=== PATIENT | female | born 1960 | race Caucasian/White ===

== ENCOUNTER → 2018-03-25 01:12 | Outpatient (CLI) | payer OTHER, SELFPAY ==
[2018-03-25] MEDS: Omnipaque 350 MG/ML 50 ML BTL IJ (08:40)
[2018-03-25] MEDS: Breeza Beverage 473 ML BTL PO (08:41)
--- NOTE | 2018-03-25 10:30 | DI.RPTCT_ITS ---
SYMPTOM/DIAGNOSIS: ENDOMETRIAL CA, C54.01 F/U ? DISEASE RESPONSE CT SCAN CHEST, ABDOMEN AND PELVIS: Comparison examination is 12/31/17. CT ABDOMEN AND PELVIS: There are again seen several hepatic metastases. The largest lesion is seen in the right lobe and measures 5.6 cm AP x 4.8 cm transverse x 4.7 cm cranial caudad. This compares with 5.6 cm AP x 4.7 cm transverse on the prior examination. There has been decrease in size of a lesion in the anterior segment of the right lobe of the liver which currently measures 2.2 cm transverse x 2.5 cm AP. This compares with 3.1 cm transverse x 2.8 cm AP. The soft tissue mass seen inferior to the liver measures 5.2 cm. AP x 3.4 cm transverse x 3.4 cm cranial caudad. This compares to 5.1 cm AP x 2.9 cm transverse on the prior examination. The gallbladder is negative by CT criteria. There is no biliary ductal dilatation. The pancreas, spleen and adrenal glands are unremarkable. The kidneys show normal and symmetric enhancement. No evidence of a solid renal mass or obstruction is present. The urinary bladder is intact. The patient appears to be status post hysterectomy. The bowel shows no evidence of obstruction or inflammation. There is a moderate amount of retained stool throughout the colon. No significant abdominal or pelvic adenopathy, ascites or pneumoperitoneum is present. No acute abnormalities seen in the bones. IMPRESSION: 1. Within the liver there has been no increase in size of the hepatic masses. Some of the hepatic lesions have shown decrease in size. Slight increase in size of the subhepatic mass since 12/31/17 CT CHEST: Thoracic aorta is of normal caliber. No aneurysmal dilatation or dissection seen. Heart size is within normal limits. No significant pericardial effusion is present. No significant mediastinal, hilar or axillary adenopathy is seen. No pleural effusion or pneumothorax is identified. No pulmonary nodules are identified. The tracheal bronchial tree is unremarkable. The bones are intact. No suspicious lytic or sclerotic lesions are present. IMPRESSION: No evidence of thoracic metastatic disease.
[2018-03-25] MEDS: Omnipaque 350 MG/ML 100 ML BTL IJ (10:31)
== END ==
PROVIDERS: PCP Family Medicine; Visit Provider Obstetrics & Gynecology Gynecologic Oncology
DX: C54.1 Malignant neoplasm of endometrium (principal); C22.9 Malignant neoplasm of liver, not specified as primary or secondary; R97.8 Other abnormal tumor markers
CPT/HCPCS: 74177; 71260; J3490; Q9967

== ENCOUNTER 2018-03-25 05:17 | Outpatient (RCR) | payer OTHER, SELFPAY ==
[2018-03-25 08:46] LABS: Abs Immature Grans 0.01 k/cumm (0.0-0.09); Absolute Basophil Count 0.02 k/cumm (0.0-0.2); Absolute Eosinophil Count 0.01 k/cumm (0.0-0.7); Absolute Lymphocyte Count 1.83 k/cumm (1.2-3.4); Absolute Monocyte Count 0.67 k/cumm (0.11-0.7); Absolute Neutrophil Count 3.96 k/cumm (1.2-6.7); Basophils % 0.3; Eosinophils % 0.2; HCT 41.3 % (36.0-46.0); HGB 14.1 g/dL (12.0-15.5); Immature Grans % 0.2; Lymphocytes % 28.2; Mean Corp. HGB Concentration 34.1 g/dL (32.0-36.0); Mean Corpuscular Hemoglobin 30.8 pg (27.0-33.0); Mean Corpuscular Volume 90.2 fL (80-95); Mean Platelet Volume 8.7 fL (8.0-11.0); Monocytes % 10.3; Neutrophils % 60.8; Platelet Count 275 x1000/uL (130-400); RBC 4.58 m/cumm (4.00-5.20); RBC Distribution Width 13.7 % (11.7-14.6)
[2018-03-25] MEDS: Normal Saline Flush 10 ML SYR IVP (08:50)
[2018-03-25] MEDS: Heparin 500 UNITS/5 ML SYRINGE IV (08:50)
[2018-03-25 09:04] LABS: ALT 35 U/L (12-78); AST 29 U/L (15-37); Alkaline Phosphatase 73 U/L (46-116); Anion Gap 11.4 mmol/L (3-11); BUN 11 mg/dL (7-18); Bilirubin, Total 1.3 mg/dL (0.2-1.0); CO2 22.6 mmol/L (21.0-32.0); CREATININE 0.81 mg/dL (0.55-1.02); Calcium 9.4 mg/dL (8.5-10.1); Chloride 105 mmol/L (98-107); Glucose 88 mg/dL (70-100); Potassium 3.9 mmol/L (3.5-5.1); Sodium 139 mmol/L (136-145); Total Protein 7.2 g/dL (6.4-8.2)
[2018-04-12] MEDS: Heparin 500 UNITS/5 ML SYRINGE IV (09:40)
[2018-04-12] MEDS: Normal Saline Flush 10 ML SYR IVP (09:45)
== END 2018-04-19 ==
LOC: INF 04-12 05:17
PROVIDERS: PCP Family Medicine; Visit Provider Internal Medicine Hematology & Oncology
DX: C54.1 Malignant neoplasm of endometrium (principal); C78.7 Secondary malignant neoplasm of liver and intrahepatic bile duct; R97.8 Other abnormal tumor markers; Z00.6 Encounter for examination for normal comparison and control in clinical research program
CPT/HCPCS: 36415; 36591; 80053; 86304; 96523; 82378; 85025

== ENCOUNTER → 2018-04-11 07:02 | Outpatient (CLI) | payer OTHER, SELFPAY ==
[2018-04-11 07:18] LABS: Absolute Basophil Count 0.03 k/cumm (0.0-0.2); Absolute Eosinophil Count 0.01 k/cumm (0.0-0.7); Absolute Lymphocyte Count 1.73 k/cumm (1.2-3.4); Absolute Monocyte Count 0.86 k/cumm (0.11-0.7); Absolute Neutrophil Count 4.78 k/cumm (1.2-6.7); Basophils % 0.4; Eosinophils % 0.1; HCT 42.7 % (36.0-46.0); HGB 14.4 g/dL (12.0-15.5); Lymphocytes % 23.3; Mean Corp. HGB Concentration 33.7 g/dL (32.0-36.0); Mean Corpuscular Hemoglobin 30.5 pg (27.0-33.0); Mean Corpuscular Volume 90.5 fL (80-95); Mean Platelet Volume 8.7 fL (8.0-11.0); Monocytes % 11.6; Neutrophils % 64.6; Platelet Count 272 x1000/uL (130-400); RBC 4.72 m/cumm (4.00-5.20); RBC Distribution Width 13.2 % (11.7-14.6); White Blood Cell Count 7.41 k/cumm (4.4-10.8)
[2018-04-11 07:41] LABS: ALT 30 U/L (12-78); AST 28 U/L (15-37); Albumin 4.1 g/dL (3.4-5.0); Alkaline Phosphatase 79 U/L (46-116); Anion Gap 9.7 mmol/L (3-11); BUN 10 mg/dL (7-18); Bilirubin, Total 3.8 mg/dL (0.2-1.0); CO2 27.3 mmol/L (21.0-32.0); CREATININE 0.82 mg/dL (0.55-1.02); Calcium 9.5 mg/dL (8.5-10.1); Chloride 99 mmol/L (98-107); Glucose 107 mg/dL (70-100); Potassium 3.7 mmol/L (3.5-5.1); Sodium 136 mmol/L (136-145); Total Protein 7.8 g/dL (6.4-8.2)
[2018-04-11 14:35] LABS: Lactate-non-spesis 0.8 mmol/L (0.6-1.4)
[2018-04-12 09:35] LABS: CEA 4.7 ng/ml
[2018-04-12 10:53] LABS: CA 125 28 U/mL (0-30)
== END ==
PROVIDERS: PCP Family Medicine; Visit Provider Internal Medicine Hematology & Oncology
DX: C54.1 Malignant neoplasm of endometrium (principal); R97.8 Other abnormal tumor markers; R10.11 Right upper quadrant pain
CPT/HCPCS: 36415; 80053; 86304; 82378; 83605; 85025

== ENCOUNTER → 2018-04-12 01:56 | Outpatient (CLI) | payer OTHER, SELFPAY ==
--- NOTE | 2018-04-12 11:16 | DI.RPTCT_ITS ---
SYMPTOM/DIAGNOSIS: RUQ PAIN R10.11, ENDOMETRIAL CA C54.1 CHEST, ABDOMEN AND PELVIS CT: 04/12 CT examination of the chest, abdomen and pelvis was performed with a bolus infusion of 100 cc Omnipaque 350 and ingestion of dilute barium. The examination is compared with most recent CT of 03/25/18. The lungs are clear and the tracheobronchial tree appears intact. No mediastinal or hilar adenopathy. No evidence of pulmonary embolic disease or other major vascular abnormality. Left subclavian indwelling catheter noted. No axillary or supraclavicular adenopathy. No pleural effusion or pleural based mass. No evidence of bony metastatic disease in the thorax. Arterial phase hepatic imaging shows markedly increased hilda-lesional/lesional enhancement of previously noted lesion located just under the diaphragm anteriorly in the right hepatic lobe. On venous phase imaging this shows an area of presumed central necrosis which has increased from about 16 mm in diameter on the previous examination to about 18 mm in diameter on the current examination. Numerous additional hepatic lesions were noted previously and these are essentially unchanged on the current examination, with the largest lesion in right hepatic lobe measuring 67 x 58 mm on transaxial imaging as compared to 66 x 58 mm on the previous examination and the largest left lobe lesion again measuring about 36 mm in diameter, unchanged from the previous study. The previously described subhepatic intra-abdominal lesion measures about 55 x 36 mm in diameter on transaxial imaging and is essentially unchanged from the previous study. Adrenals, kidneys and pancreas are unremarkable. No biliary dilatation. The spleen appears intact. No gross retroperitoneal or pelvic adenopathy. No focal bowel pathology identified. No abdominal wall hernia seen. No gross bony lesion identified on scanning of the chest, abdomen or pelvis. CONCLUSION: Findings of hepatic metastatic disease are unchanged from 03/25/18 except for slight interval increase in size and prominent increase in perilesional/lesional enhancement of an anterior right hepatic lobe lesion as described above. An apparent subhepatic lesion is unchanged from the previous study. No new remote metastatic disease.
[2018-04-12] MEDS: Omnipaque 350 MG/ML 100 ML BTL IJ (11:22)
== END ==
PROVIDERS: PCP Family Medicine; Visit Provider Family Medicine
DX: C54.1 Malignant neoplasm of endometrium (principal); C78.7 Secondary malignant neoplasm of liver and intrahepatic bile duct
CPT/HCPCS: 74177; 71260; J3490

== ENCOUNTER → 2018-04-14 01:28 | Outpatient (CLI) | payer OTHER, SELFPAY ==
[2018-04-14 09:46] LABS: Bilirubin, Total 1.9 mg/dL (0.2-1.0)
== END ==
PROVIDERS: PCP Family Medicine; Visit Provider Family Medicine
DX: C54.1 Malignant neoplasm of endometrium (principal); C78.7 Secondary malignant neoplasm of liver and intrahepatic bile duct
CPT/HCPCS: 36415; 82247

== ENCOUNTER 2018-05-01 01:50 | Outpatient (CLI) | payer OTHER, SELFPAY ==
[2018-05-01 09:44] LABS: Abs Immature Grans 0.04 k/cumm (0.0-0.09); Absolute Lymphocyte Count 0.79 k/cumm (1.2-3.4); Absolute Monocyte Count 0.99 k/cumm (0.11-0.7); Absolute Neutrophil Count 7.65 k/cumm (1.2-6.7); HCT 36.1 % (36.0-46.0); Immature Grans % 0.4; Lymphocytes % 8.3; Mean Corp. HGB Concentration 33.2 g/dL (32.0-36.0); Mean Corpuscular Hemoglobin 29.8 pg (27.0-33.0); Mean Corpuscular Volume 89.6 fL (80-95); Mean Platelet Volume 8.7 fL (8.0-11.0); Monocytes % 10.5; Neutrophils % 80.8; Platelet Count 287 x1000/uL (130-400); RBC 4.03 m/cumm (4.00-5.20); RBC Distribution Width 13.3 % (11.7-14.6); White Blood Cell Count 9.47 k/cumm (4.4-10.8)
[2018-05-01 10:34] LABS: ALT 137 U/L (12-78); AST 57 U/L (15-37); Albumin 2.9 g/dL (3.4-5.0); Alkaline Phosphatase 121 U/L (46-116); Anion Gap 8.2 mmol/L (3-11); BUN 9 mg/dL (7-18); CO2 27.8 mmol/L (21.0-32.0); CREATININE 0.61 mg/dL (0.55-1.02); Calcium 8.8 mg/dL (8.5-10.1); Chloride 98 mmol/L (98-107); Glucose 100 mg/dL (70-100); Potassium 3.9 mmol/L (3.5-5.1); Sodium 134 mmol/L (136-145); Total Protein 6.4 g/dL (6.4-8.2)
== END 2018-05-01 02:10 ==
PROVIDERS: PCP Family Medicine; Visit Provider Family Medicine
DX: R10.9 Unspecified abdominal pain (principal)
CPT/HCPCS: 36415; 80053; 84443; 85025

== ENCOUNTER 2018-06-05 00:50 | Outpatient (CLI) | payer OTHER, SELFPAY ==
[2018-06-05] MEDS: Omnipaque 350 MG/ML 100 ML BTL IJ ×2 (08:58→10:25)
[2018-06-05] MEDS: Breeza Beverage 473 ML BTL PO (08:58)
--- NOTE | 2018-06-05 10:30 | DI.CT_ITS ---
SYMPTOMS/DIAGNOSIS: H/O ENDOMETRIAL CA, ASSESS DISEASE, COMPARE TO PREVIOUS CT OF THE CHEST, ABDOMEN AND PELVIS: The examination was carried out according to the usual protocol with an intravenous administration of 100 cc's of Omnipaque 350 and ingestion of dilute barium. Comparison is made with a prior study of 04/12/18. CHEST CT: The lungs are clear. The tracheobronchial tree is intact. There is no mediastinal or hilar adenopathy. There is no evidence of axillary or supraclavicular adenopathy. A Port-a-Cath is identified. Its tip ending in the superior vena cava. SUMMARY: No evidence of metastatic disease in the chest. ABDOMEN AND PELVIS CT: The with intravenous and oral contrast enhanced study reveals numerous hepatic metastases. The previously described dominant right hepatic lobe mass today measures 4.6 cm in length and 3.4 cm in width in the coronal plane compared with the prior study of 6.8 cm and 4.3 cm. Numerous other right hepatic lobe lesions and the anterior superior right hepatic lobe lesion measures 3.2 cm in length and 2.8 cm in width in the coronal plane vs 3.5 x 3.7 cm on the prior study. A subhepatic mass measures 3.2 cm x 3.7 cm on the current examination and 4.0 x 3.2 cm on the prior examination. The spleen, pancreas, kidneys and adrenals are unremarkable. There is no evidence of bowel obstruction. A considerable quantity of gas and scattered fecal material is noted throughout the colon. The bladder is normal. There is no evidence of intra-abdominal or pelvic adenopathy. Degenerative changes involving a scoliotic dorsolumbar spine are identified. There is nothing to suggest bony metastases. SUMMARY: There has been some decrease in the size of the dominant right hepatic lobe lesions. No new lesions are identified in the liver. Also a slight interval decrease in the size of a subhepatic mass is noted. There is otherwise no evidence of metastatic disease in the abdomen or pelvis.
== END 2018-06-05 01:10 ==
PROVIDERS: PCP Family Medicine; Visit Provider Obstetrics & Gynecology Gynecologic Oncology
DX: C54.1 Malignant neoplasm of endometrium (principal); C78.7 Secondary malignant neoplasm of liver and intrahepatic bile duct; Z00.6 Encounter for examination for normal comparison and control in clinical research program
CPT/HCPCS: 74177; 71260; J3490

== ENCOUNTER 2018-06-05 01:48 | Outpatient (RCR) | payer OTHER, SELFPAY ==
[2018-06-05] MEDS: Heparin 500 UNITS/5 ML SYRINGE IV (07:50)
[2018-06-05] MEDS: Normal Saline Flush 10 ML SYR IVP (07:50)
[2018-06-05 08:40] LABS: ALT 38 U/L (12-78); AST 31 U/L (15-37); Albumin 3.4 g/dL (3.4-5.0); Alkaline Phosphatase 123 U/L (46-116); BUN 14 mg/dL (7-18); Bilirubin, Total 1.4 mg/dL (0.2-1.0); CREATININE 0.83 mg/dL (0.55-1.02); Calcium 8.5 mg/dL (8.5-10.1); Chloride 109 mmol/L (98-107); Glucose 95 mg/dL (70-100); Potassium 4.3 mmol/L (3.5-5.1); Sodium 143 mmol/L (136-145); Total Protein 6.7 g/dL (6.4-8.2)
== END 2018-06-19 23:59 | disposition home or self-care (01) ==
LOC: INF 01:48
PROVIDERS: PCP Family Medicine; Visit Provider Internal Medicine Hematology & Oncology
DX: C54.1 Malignant neoplasm of endometrium (principal); Z45.2 Encounter for adjustment and management of vascular access device
CPT/HCPCS: 36591; 80053

== ENCOUNTER 2018-07-16 09:05 | Outpatient (RCR) | payer OTHER, SELFPAY ==
[2018-07-16] MEDS: Normal Saline Flush 10 ML SYR IVP (10:33)
[2018-07-16] MEDS: Heparin 500 UNITS/5 ML SYRINGE IV (10:34)
[2018-07-16 10:37] LABS: ALT 41 U/L (12-78); AST 30 U/L (15-37); Albumin 3.5 g/dL (3.4-5.0); Alkaline Phosphatase 97 U/L (46-116); Anion Gap 10.3 mmol/L (3-11); BUN 12 mg/dL (7-18); Bilirubin, Total 1.1 mg/dL (0.2-1.0); CO2 23.7 mmol/L (21.0-32.0); CREATININE 0.77 mg/dL (0.55-1.02); Chloride 108 mmol/L (98-107); Glucose 71 mg/dL (70-100); Potassium 3.5 mmol/L (3.5-5.1); Sodium 142 mmol/L (136-145); Total Protein 6.8 g/dL (6.4-8.2)
== END 2018-07-19 23:59 | disposition home or self-care (01) ==
LOC: INF 09:05
PROVIDERS: PCP Family Medicine; Visit Provider Internal Medicine Hematology & Oncology
DX: C54.1 Malignant neoplasm of endometrium (principal); C78.7 Secondary malignant neoplasm of liver and intrahepatic bile duct; R97.8 Other abnormal tumor markers; Z00.6 Encounter for examination for normal comparison and control in clinical research program; Z45.2 Encounter for adjustment and management of vascular access device
CPT/HCPCS: 36591; 80053

== ENCOUNTER 2018-08-21 00:39 | Outpatient (CLI) | payer OTHER, SELFPAY ==
[2018-08-21] MEDS: Breeza Beverage 473 ML BTL PO ×2 (08:32→08:35)
[2018-08-21] MEDS: Omnipaque 350 MG/ML 50 ML BTL IJ (08:34)
--- NOTE | 2018-08-21 08:45 | DI.CT_ITS ---
SYMPTOMS/DIAGNOSIS: ENDOMETRIAL CA, ASSESS DISEASE RESPONSE, C54.1 CT OF THE CHEST, ABDOMEN AND PELVIS: Comparison is made with [id number]. Small emboli are seen in the right upper, right middle and right lower lobes as well as the left lower lobe which are partially occluding and have the appearance of subacute pulmonary emboli. No emboli were demonstrated on the previous exam. There is no evidence of pulmonary nodules, infiltrates or effusions. No adenopathy is seen. There has been significant interval decrease in size of the liver metastases. The largest lesion now measures 2.9 x 3.1 cm compared with 4.6 x 3.4 cm. Other liver lesions have also decreased substantially in size. The subhepatic mass has also decreased in size, now measuring 2.4 cm. No new masses are seen. There is no evidence of ascites or omental thickening. A large quantity of stool is again noted. The spleen, pancreas, adrenals and kidneys are unremarkable. The patient is status post hysterectomy. The bladder is unremarkable. No suspicious bony lesions are identified. Scoliosis is again noted. IMPRESSION: 1. Small bilateral partially occluding pulmonary emboli. 2. Significant decrease in size of hepatic metastases and subhepatic mass. No new metastatic disease is identified.
[2018-08-21] MEDS: Omnipaque 350 MG/ML 100 ML BTL IJ (09:34)
== END 2018-08-21 00:59 ==
PROVIDERS: PCP Family Medicine; Visit Provider Obstetrics & Gynecology Gynecologic Oncology
DX: C54.1 Malignant neoplasm of endometrium (principal); C78.7 Secondary malignant neoplasm of liver and intrahepatic bile duct; I26.99 Other pulmonary embolism without acute cor pulmonale
CPT/HCPCS: 74177; 71260; J3490; Q9967

== ENCOUNTER 2018-08-21 01:55 | Outpatient (RCR) | payer OTHER, SELFPAY ==
[2018-08-21] MEDS: Normal Saline Flush 10 ML SYR IVP (08:34)
[2018-08-21] MEDS: Heparin 500 UNITS/5 ML SYRINGE IV (08:35)
[2018-08-21 08:54] LABS: ALT 38 U/L (12-78); AST 27 U/L (15-37); Albumin 3.7 g/dL (3.4-5.0); Alkaline Phosphatase 94 U/L (46-116); Anion Gap 10.4 mmol/L (3-11); BUN 12 mg/dL (7-18); Bilirubin, Total 0.9 mg/dL (0.2-1.0); CO2 24.6 mmol/L (21.0-32.0); Chloride 107 mmol/L (98-107); Glucose 100 mg/dL (70-100); Potassium 3.9 mmol/L (3.5-5.1); Sodium 142 mmol/L (136-145)
== END 2018-09-19 23:59 | disposition home or self-care (01) ==
LOC: INF 01:55
PROVIDERS: PCP Family Medicine; Visit Provider Internal Medicine Hematology & Oncology
DX: C54.1 Malignant neoplasm of endometrium (principal); Z45.2 Encounter for adjustment and management of vascular access device
CPT/HCPCS: 36591; 80053; 96523

== ENCOUNTER 2018-08-26 01:00 | Outpatient (CLI) | payer OTHER, SELFPAY ==
--- NOTE | 2018-08-26 11:00 | DI.US_ITS ---
SYMPTOM/DIAGNOSIS: PULMONARY EMBOLUS, I26.99 BILATERAL LOWER EXTREMITY ULTRASOUND: The deep veins of the lower extremities show normal compression, augmentation and color flow. No evidence of a deep venous thrombus is seen. The visualized portions of the greater saphenous vein are patent with blood flow and compression noted. IMPRESSION: No evidence of a deep venous thrombus in either lower extremity.
== END 2018-08-26 01:20 ==
PROVIDERS: PCP Family Medicine; Visit Provider Internal Medicine Hematology & Oncology
DX: I26.99 Other pulmonary embolism without acute cor pulmonale (principal)
CPT/HCPCS: 93970

== ENCOUNTER 2018-09-13 00:39 | Outpatient (CLI) | payer OTHER, SELFPAY ==
--- NOTE | 2018-09-13 11:38 | DI.MRI_ITS ---
SYMPTOMS/DIAGNOSIS: RIGHT SHOULDER PAIN S/P INJURY 3 MONTHS AGO, ? ROTATOR CUFF TEAR MRI OF THE RIGHT SHOULDER: Routine noncontrast examination was performed. The subscapularis, supraspinatus, infraspinatus and teres minor tendons are intact. The muscles show normal signal and size. No evidence of significant muscular fatty atrophy is present. The biceps tendon has a normal appearance and location. The glenoid labrum is grossly unremarkable on this noncontrast examination. There are mild degenerative changes seen at the glenohumeral joint and the acromioclavicular joint. No evidence of an occult fracture or avascular necrosis is seen. Subchondral cyst is seen in the greater tuberosity. There is a moderate-size joint effusion. There is a moderate amount of fluid in the subcoracoid bursa. No soft tissue masses appreciated. The ligaments appear intact. IMPRESSION: 1. No evidence of rotator cuff or labral tear on this noncontrast examination. 2. Degenerative changes at the glenohumeral and acromioclavicular joints. 3. Subcoracoid bursitis and small to moderate-sized joint effusion.
--- NOTE | 2018-09-18 12:02 | LETE_ITS ---
September 18, 2018 Kanika Gama M.D. Department of Orthopedics [place] [id number] Re: Tabby Rico M.D. : [address] Gama: I would like to refer to you Dr. 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 She has recently responded to chemotherapy and now is on hormonal therapy. She is complaining of right shoulder pain with no history of trauma. A clinical examination showed a very mildly restricted range of motion and mainly pain. I initially thought she may have some de gree of rotator cuff tendonitis and injected the subacromial space without any relief. I then subseq uently injected the glenohumeral joint from which she had excellent relief but only temporary. Becau se her prognosis for her endometrial cancer has changed in a positive way, she decided to go ahead wi th further evaluation with an MRI scan. This was done at [facility] and the images have been pushed to you at [facility]. The imaging showed eviden ce of glenohumeral arthritis with a fairly prominent amount of joint fluid and some mildly increased signal intensity in the supraspinatus tendon. There was also an accumulation of fluid in the subcora coid process. There was also an associated cyst in the humeral head which was seen on the patient's chest CAT scans going back as far as 2017. There was does not appear to be any evidence of any kim gnancy involving the glenohumeral joint nor does she show any potential signs of avascular necrosis r elated to her chemotherapy. 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 My understanding from the patient is that it is currently maybe up to 2 years. She does not really feel prepared to undergo a total shoulder arthroplasty and Arnaldo Rubio M.D. thought perhaps she might benefit from a arthroscopic evaluation and perhaps debridement. She is c urrently Kanika Gama M.D. Re: Tabby Rico M.D. September 18, 2018 Page 2 on anticoagulation for multiple pulmonary emboli that were detected on a CT scan even though she was having very minimal symptoms from that. I would appreciate your opinion regarding how to further manage this patient, perhaps repeat injectio n of the glenohumeral joint would be in order. It was fairly easy to inject and I was pretty certain I was in the joint in that the patient got excellent relief but unfortunately the Depo-Medrol did no t really provide any relief. She only got relief from the Marcaine which was injected simultaneously . Please feel free to contact me if you have any questions regarding this patient. Sincerely, Tyrel Allen M.D. AARON/kathe D/T-09/18/18
== END 2018-09-13 00:59 ==
PROVIDERS: PCP Family Medicine; Visit Provider Orthopaedic Surgery
DX: M25.511 Pain in right shoulder (principal); M19.011 Primary osteoarthritis, right shoulder; M25.411 Effusion, right shoulder; M75.51 Bursitis of right shoulder
CPT/HCPCS: 73221

== ENCOUNTER 2018-10-02 08:00 | Outpatient (RCR) | payer OTHER, SELFPAY ==
[2018-10-02] MEDS: Heparin 500 UNITS/5 ML SYRINGE IV (09:06)
[2018-10-02] MEDS: Normal Saline Flush 10 ML SYR IVP (09:06)
== END 2018-10-17 23:59 | disposition home or self-care (01) ==
LOC: INF 08:00
PROVIDERS: PCP Family Medicine; Visit Provider Obstetrics & Gynecology Gynecologic Oncology
DX: Z45.2 Encounter for adjustment and management of vascular access device (principal)
CPT/HCPCS: 96523

== ENCOUNTER 2018-11-19 01:34 | Outpatient (CLI) | payer OTHER, SELFPAY ==
--- NOTE | 2018-11-19 11:46 | DI.CT_ITS ---
SYMPTOMS/DIAGNOSIS: ENDOMETRIAL CA, C54.1, EVALUATE DISEASE CT EXAMINATION OF THE CHEST, ABDOMEN AND PELVIS: The study was carried out with an intravenous injection of 100 cc of Omnipaque 350. Comparison is made with the prior examination of 08/21/2018. On today's study, there is no evidence of pulmonary emboli. There is no evidence of pulmonary metastasis. Multiple hepatic metastases are again demonstrated. There is no evidence of an infiltrate, no pleural effusion and no adenopathy is identified. Again noted are multiple liver lesions, the largest of which measures today approximately 23 x 24 mm and previously measured 29 x 31 mm. There has been no definite interval change in the size of multiple other lesions. No definite new metastases are evident. A subhepatic mass measures 17 x 32 mm compared with 20 x 40 mm on the previous study. The spleen, kidneys and adrenals are intact. The pancreas is unremarkable. There is no evidence of bowel pathology. The bladder appears intact. The patient is status post hysterectomy. Again noted is a scoliotic deformity of the lower dorsal and lumbar spine. There are degenerative bony changes at L5-S1 where a narrowed vacuum disc is seen. There are no findings to suggest bony metastases. SUMMARY: There has been some slight interval decrease in at least two of the hepatic metastases. No new metastatic deposits are seen. Also, there has been a slight interval decrease in the size of a subhepatic metastasis. As note above, no pulmonary emboli are noted on today's examination.
[2018-11-19] MEDS: Omnipaque 350 MG/ML 100 ML BTL IJ (11:49)
== END 2018-11-19 01:54 ==
PROVIDERS: PCP Family Medicine; Visit Provider Obstetrics & Gynecology Gynecologic Oncology
DX: C54.1 Malignant neoplasm of endometrium (principal); Z12.89 Encounter for screening for malignant neoplasm of other sites; C78.7 Secondary malignant neoplasm of liver and intrahepatic bile duct
CPT/HCPCS: 74177; 71260; J3490

== ENCOUNTER 2018-11-25 01:30 | Outpatient (RCR) | payer OTHER, SELFPAY ==
[2018-11-19] MEDS: Normal Saline Flush 10 ML SYR IVP (09:14)
[2018-11-19] MEDS: Heparin 500 UNITS/5 ML SYRINGE IV (09:15)
[2018-11-19 09:27] LABS: Abs Immature Grans 0.01 k/cumm (0.0-0.09); Absolute Basophil Count 0.02 k/cumm (0.0-0.2); Absolute Eosinophil Count 0.01 k/cumm (0.0-0.7); Absolute Lymphocyte Count 1.47 k/cumm (1.2-3.4); Absolute Monocyte Count 0.51 k/cumm (0.11-0.7); Absolute Neutrophil Count 3.05 k/cumm (1.2-6.7); Basophils % 0.4; Eosinophils % 0.2; HCT 42.3 % (36.0-46.0); HGB 14.3 g/dL (12.0-15.5); Immature Grans % 0.2; Mean Corp. HGB Concentration 33.8 g/dL (32.0-36.0); Mean Corpuscular Hemoglobin 29.7 pg (27.0-33.0); Mean Corpuscular Volume 87.8 fL (80-95); Mean Platelet Volume 9.2 fL (8.0-11.0); Monocytes % 10.1; Neutrophils % 60.1; Platelet Count 279 x1000/uL (130-400); RBC 4.82 m/cumm (4.00-5.20); RBC Distribution Width 15.3 % (11.7-14.6); White Blood Cell Count 5.07 k/cumm (4.4-10.8)
[2018-11-19 09:35] LABS: ALT 41 U/L (12-78); AST 32 U/L (15-37); Alkaline Phosphatase 88 U/L (46-116); Anion Gap 12.6 mmol/L (3-11); BUN 13 mg/dL (7-18); Bilirubin, Total 2.3 mg/dL (0.2-1.0); CO2 24.4 mmol/L (21.0-32.0); Calcium 9.3 mg/dL (8.5-10.1); Chloride 104 mmol/L (98-107); Glucose 90 mg/dL (70-100); Potassium 4.1 mmol/L (3.5-5.1); Sodium 141 mmol/L (136-145); Total Protein 6.9 g/dL (6.4-8.2)
== END 2018-12-17 23:59 | disposition home or self-care (01) ==
LOC: INF 01:30
PROVIDERS: PCP Family Medicine; Visit Provider Internal Medicine Hematology & Oncology
DX: C54.1 Malignant neoplasm of endometrium (principal); Z45.2 Encounter for adjustment and management of vascular access device
CPT/HCPCS: 36591; 80053; 85025

== ENCOUNTER 2018-12-31 08:08 | Outpatient (RCR) | payer OTHER, SELFPAY ==
[2018-12-31] MEDS: Heparin 500 UNITS/5 ML SYRINGE IV (09:52)
[2018-12-31] MEDS: Normal Saline Flush 10 ML SYR IVP (09:53)
== END 2019-01-17 23:59 | disposition home or self-care (01) ==
LOC: INF 08:08
PROVIDERS: PCP Family Medicine; Visit Provider Internal Medicine Hematology & Oncology
DX: Z45.2 Encounter for adjustment and management of vascular access device (principal)
CPT/HCPCS: 96523

== ENCOUNTER 2019-02-07 08:19 | Outpatient (RCR) | payer OTHER, SELFPAY | END 2019-02-16 23:59 | disposition home or self-care (01) | LOC: INF 08:19 | PROVIDERS: PCP Family Medicine; Visit Provider Internal Medicine Hematology & Oncology | DX: Z45.2 Encounter for adjustment and management of vascular access device (principal) | CPT/HCPCS: 96523 ==

== ENCOUNTER 2019-03-24 09:19 | Outpatient (RCR) | payer OTHER, SELFPAY ==
[2019-03-24] MEDS: Normal Saline Flush 10 ML SYR IVP (09:50)
[2019-03-24] MEDS: Heparin 500 UNITS/5 ML SYRINGE IV (10:07)
[2019-03-24 10:33] LABS: ALT 58 U/L (12-78); AST 45 U/L (15-37); Albumin 3.8 g/dL (3.4-5.0); Alkaline Phosphatase 74 U/L (46-116); Anion Gap 8.1 mmol/L (3-11); BUN 20 mg/dL (7-18); Bilirubin, Total 1.3 mg/dL (0.2-1.0); CO2 26.9 mmol/L (21.0-32.0); CREATININE 0.73 mg/dL (0.55-1.02); Calcium 8.8 mg/dL (8.5-10.1); Chloride 103 mmol/L (98-107); Glucose 92 mg/dL (70-100); Potassium 3.6 mmol/L (3.5-5.1); Sodium 138 mmol/L (136-145); Total Protein 6.7 g/dL (6.4-8.2)
== END 2019-04-19 23:59 | disposition home or self-care (01) ==
LOC: INF 09:19
PROVIDERS: PCP Family Medicine; Visit Provider Obstetrics & Gynecology Gynecologic Oncology
DX: C54.1 Malignant neoplasm of endometrium (principal); Z45.2 Encounter for adjustment and management of vascular access device
CPT/HCPCS: 36591; 80053

== ENCOUNTER 2019-06-09 01:42 | Outpatient (CLI) | payer OTHER, SELFPAY ==
--- NOTE | 2019-06-09 11:19 | DI.RAD_ITS ---
EXAM: XR RIBS RT PA CHEST 3V INDICATION: RIB PAIN, R07.81. COMPARISON: No exams were available for comparison TECHNIQUE: 2D digital imaging was performed. FINDINGS: The lungs are well expanded and free of infiltrate. There is no pleural effusion. There is no pneumot horax. The heart is not enlarged. The hilar structures mediastinum and tracheal air column are intact . There is no evidence of a right rib fracture. IMPRESSION: No evidence of a rib fracture. No evidence of acute cardiopulmonary disease.
== END 2019-06-09 02:02 ==
PROVIDERS: PCP Family Medicine; Visit Provider Internal Medicine Hematology & Oncology
DX: R07.81 Pleurodynia (principal)
CPT/HCPCS: 71046; 71100

== ENCOUNTER 2019-06-26 10:53 | Outpatient (CLI) | payer OTHER, SELFPAY ==
[2019-06-26 12:18] LABS: ALT 55 U/L (14-59); AST 40 U/L (15-37); Albumin 4.2 g/dL (3.4-5.0); Alkaline Phosphatase 74 U/L (46-116); Anion Gap 9.4 mmol/L (3-11); BUN 12 mg/dL (7-18); Bilirubin, Total 1.4 mg/dL (0.2-1.0); CO2 27.6 mmol/L (21.0-32.0); CREATININE 0.76 mg/dL (0.55-1.02); Calcium 9.3 mg/dL (8.5-10.1); Chloride 104 mmol/L (98-107); Glucose 91 mg/dL (70-100); Potassium 3.7 mmol/L (3.5-5.1); Sodium 141 mmol/L (136-145); Total Protein 6.8 g/dL (6.4-8.2)
[2019-06-27 11:13] LABS: CA 125 20 U/mL (0-30)
== END 2019-06-26 11:13 ==
PROVIDERS: PCP Family Medicine; Visit Provider Obstetrics & Gynecology Gynecologic Oncology
DX: C54.1 Malignant neoplasm of endometrium (principal)
CPT/HCPCS: 36415; 80053; 86304

== ENCOUNTER 2019-06-27 07:25 | Outpatient (CLI) | payer OTHER, SELFPAY ==
[2019-06-27] MEDS: Omnipaque 350 MG/ML 50 ML BTL PO (12:35)
[2019-06-27] MEDS: Breeza Beverage 473 ML BTL PO ×2 (12:35→12:36)
--- NOTE | 2019-06-27 13:50 | DI.CT_ITS ---
EXAM: CT CHEST/ABD/PEL W CLINICAL HISTORY: H/O ENDOMETRIAL CA, C54.1, ON RESEARCH PROTOCOL G286B TECHNIQUE: After IV and oral contrast. COMPARISON: CT CHEST/ABD/PEL W from 11/19/2018 FINDINGS: CHEST CT: No pulmonary nodules, infiltrates or effusions are seen. Heart size is normal. The pulmon ivonne arteries are well opacified with IV contrast and no pulmonary artery filling defects are seen. T here is no adenopathy. No lytic or blastic bony lesions are seen. ABDOMINAL AND PELVIC CT: There is a is stable lesion near the dome of the liver measuring 2 cm in allie meter. The larger lesion seen inferolaterally in the right lobe appears unchanged in size and appear ance measuring 2.3 cm. The subhepatic lesion appears to have increased in size, measuring 2.2 x 3.1 x 3.6 cm. No new lesions are seen. There are no new mesenteric nodules. The spleen, adrenals, panc reas, and kidneys are unremarkable. The appendix appears normal. There is increased stool seen thro ughout the colon. No ascites or adenopathy is seen. There is no small bowel distension. There is s evere scoliosis. No suspicious bony lesions are identified. The bladder is unremarkable. IMPRESSION: Interval increase in size of subhepatic metastasis. Stable liver metastases.
[2019-06-27] MEDS: Omnipaque 350 MG/ML 100 ML BTL IJ (14:11)
== END 2019-06-27 07:45 ==
PROVIDERS: PCP Family Medicine; Visit Provider Obstetrics & Gynecology Gynecologic Oncology
DX: C54.1 Malignant neoplasm of endometrium (principal); Z79.899 Other long term (current) drug therapy; C78.7 Secondary malignant neoplasm of liver and intrahepatic bile duct
CPT/HCPCS: 74177; 71260; J3490; Q9967

== ENCOUNTER 2019-09-10 10:00 | Outpatient (CLI) | payer OTHER, SELFPAY ==
--- NOTE | 2019-09-10 15:10 | DI.RAD_ITS ---
EXAM: XR KNEE LT 3V AP,LAT,YOVANA CLINICAL HISTORY: Pain. TECHNIQUE: 2D digital imaging was performed. COMPARISON: No exams were available for comparison FINDINGS: BONES: No acute fracture is present. No bony destructive lesion is seen. JOINTS: The knee is normally aligned. No joint effusion is seen. SOFT TISSUE: Normal. IMPRESSION: Normal radiographs of the left knee.
== END 2019-09-10 10:20 ==
PROVIDERS: PCP Family Medicine; Visit Provider Student in an Organized Health Care Education/Training Program
DX: M25.562 Pain in left knee (principal)
CPT/HCPCS: 73562

== ENCOUNTER 2019-09-19 13:12 | Outpatient (CLI) | payer OTHER, SELFPAY ==
[2019-09-19 13:56] LABS: Abs Immature Grans 0.03 k/cumm (0.0-0.09); Absolute Basophil Count 0.01 k/cumm (0.0-0.2); Absolute Lymphocyte Count 0.91 k/cumm (1.2-3.4); Absolute Monocyte Count 0.81 k/cumm (0.11-0.7); Absolute Neutrophil Count 8.31 k/cumm (1.2-6.7); Basophils % 0.1; HCT 40.9 % (36.0-46.0); HGB 13.5 g/dL (12.0-15.5); Immature Grans % 0.3 %; Mean Corpuscular Hemoglobin 29.3 pg (27.0-33.0); Mean Corpuscular Volume 88.9 fL (80-95); Mean Platelet Volume 9.5 fL (8.0-11.0); Neutrophils % 82.6; Platelet Count 295 x1000/uL (130-400); RBC Distribution Width 13.8 % (11.7-14.6); White Blood Cell Count 10.07 k/cumm (4.4-10.8)
[2019-09-19 14:31] LABS: ALT 103 U/L (14-59); AST 39 U/L (15-37); Albumin 3.9 g/dL (3.4-5.0); Alkaline Phosphatase 101 U/L (46-116); Anion Gap 8.9 mmol/L (3-11); BUN 9 mg/dL (7-18); Bilirubin, Total 1.2 mg/dL (0.2-1.0); CO2 26.1 mmol/L (21.0-32.0); CREATININE 0.62 mg/dL (0.55-1.02); Calcium 9.2 mg/dL (8.5-10.1); Chloride 100 mmol/L (98-107); Glucose 102 mg/dL (74-106); Potassium 4.1 mmol/L (3.5-5.1); Sodium 135 mmol/L (136-145); Total Protein 6.8 g/dL (6.4-8.2)
== END 2019-09-19 13:32 ==
PROVIDERS: PCP Family Medicine; Visit Provider Family Medicine
DX: R10.13 Epigastric pain (principal)
CPT/HCPCS: 36415; 80053; 85025

== ENCOUNTER 2019-09-30 01:01 | Outpatient (CLI) | payer OTHER, SELFPAY ==
--- NOTE | 2019-09-30 11:11 | DI.MRI_ITS ---
EXAM: MR LOWER JOINT LT WO CLINICAL HISTORY: MEDIAL PAIN STRESS FRACTURE VS MENISCUS, PES BURSITIS, M84.362A STRESS FX. TECHNIQUE: Multiplanar multisequence MRI was performed. COMPARISON: XR KNEE LT 3V AP,LAT,YOVANA from 09/10/2019 FINDINGS: There is a small joint effusion and a tiny Girard's cyst. Marrow signal is normal. There is no evide nce of a stress fracture. Cruciate and collateral ligaments and extensor mechanism appear intact. T here is no evidence of meniscal tears. There is a mild amount of degenerative signal in the menisci. There is mild thickening. There is a mild amount of edema distally around the pes anserine tendons but no localized fluid collection or evidence of tendon tear. There is some thinning of the cartilag e overlying the medial patellar facet, which appears to extend nearly down to bone. IMPRESSION: Small joint effusion. Small Girard's cyst. Findings consistent with pes anserine bursitis.
== END 2019-09-30 01:21 ==
PROVIDERS: PCP Family Medicine; Visit Provider Student in an Organized Health Care Education/Training Program
DX: M25.562 Pain in left knee (principal); M25.462 Effusion, left knee; M77.32 Calcaneal spur, left foot; M70.52 Other bursitis of knee, left knee
CPT/HCPCS: 73721

== ENCOUNTER 2020-04-12 00:43 | Outpatient (CLI) | payer OTHER, SELFPAY ==
[2020-04-12 08:23] LABS: Abs Immature Grans 0.02 10^3/uL (0.0-0.06); Absolute Basophil Count 0.01 10^3/uL (0.0-0.2); Absolute Eosinophil Count 0.02 10^3/uL (0.0-0.7); Absolute Lymphocyte Count 0.97 10^3/uL (1.2-3.4); Absolute Monocyte Count 0.39 10^3/uL (0.1-0.8); Absolute Neutrophil Count 3.76 10^3/uL (1.2-6.7); Basophils % 0.2; Eosinophils % 0.4; HCT 43.6 % (36.0-46.0); HGB 14.2 g/dL (11.2-15.7); Immature Grans % 0.4; Lymphocytes % 18.8; MCH 29.1 pg (27.0-33.0); MCHC 32.6 % (32.0-36.0); MCV 89.3 fL (80-95); MPV 9.4 fL (8.0-11.0); Monocytes % 7.5; Neutrophils % 72.7; Nucleated RBC 0 %; Platelet Count 304 10^3/uL (130-400); RBC 4.88 10^6/uL (3.93-5.22); RDW 13.8 % (11.7-14.6); RDW-SD 44.9 fL; WBC 5.17 10^3/uL (4.4-10.8)
[2020-04-12 08:37] LABS: ALT 58 U/L (14-59); AST 52 U/L (15-37); Albumin 3.9 g/dL (3.4-5.0); Alkaline Phosphatase 73 U/L (46-116); Anion Gap 9.2 mmol/L (3-11); BUN 11 mg/dL (7-18); CO2 26.8 mmol/L (21.0-32.0); CREATININE 0.71 mg/dL (0.55-1.02); Calcium 9.5 mg/dL (8.5-10.1); Chloride 102 mmol/L (98-107); Glucose 86 mg/dL (74-106); Potassium 4.6 mmol/L (3.5-5.1); Sodium 138 mmol/L (136-145); Total Protein 7.1 g/dL (6.4-8.2)
--- NOTE | 2020-04-12 09:15 | DI.CT_ITS ---
EXAM: CT ABDOMEN PELVIS W CLINICAL HISTORY: RECURRENT ENDOMETRIAL CA,C54.1,INCREASED ABD PAIN TECHNIQUE: COMPARISON: CT CT CHEST/ABD/PEL W from 06/27/2019 FINDINGS: CT examination of the abdomen and pelvis was performed with bolus infusion of 100 cc of Omnipaque 350 . Examination is compared with most recent prior CT 07/09/2019. Multiple hepatic lesions again note d in a patient with history metastatic endometrial carcinoma. Sub hepatic mass previously identified is grossly unchanged in appearance or perhaps slightly smaller than on the prior examination, this measures up to about 3.4 cm in diameter. A right lateral hepatic lesion is unchanged in appearance, measuring about 19 millimeters in diameter . A posteriorly located lesion at the dome of the liver is unchanged measuring roughly 11 millimeter s in greatest diameter. A 21 millimeter in diameter anterior right hepatic lobe lesion is unchanged. A segment II anterior left hepatic lobe lesion is increased in size, now measuring about 16 millimete rs by 12 millimeters in diameter as compared to about 12 millimeters by 8 millimeters in diameter on prior study The segment IV a lesion is grossly unchanged in size at about 14 millimeters in shows decreased atten uation comparison prior study. The pancreas and spleen are unremarkable in appearance. No biliary dilatation. Abdominal aorta and major visceral branches are intact. IVC is of large diameter with no gross evidence of occlusion. No gross retroperitoneal or pelvic adenopathy seen. No significant abdominal wall hernia. Adrenals and kidneys are unremarkable with no evidence of obstruction or nephrolithiasis. Urinary bladder low volume but grossly intact. No focal bowel pathology identified. No evidence of obstruction. Visualized lung bases are clear. No pleural effusion. No focal bony lesion identified. IMPRESSION: Predominantly stable appearance of hepatic and sub hepatic metastases as described above. Mild increase in size of segment 2 anterior left hepatic lobe lesion may reflect necrosis post ablati on, decreased attenuation identified in the segment 4 lesion may also reflect necrosis. Follow-up sc an may be obtained in 6-12 months if clinically appropriate. RADIATION DOSE DELIVERED: 452.13mGy.cm Total DLP
[2020-04-12] MEDS: Normal Saline - Diluent 50 ML VIAL IV (09:20)
[2020-04-12] MEDS: Omnipaque 350 MG/ML 100 ML BTL IJ (09:20)
[2020-04-12] MEDS: Normal Saline Flush 10 ML SYR IVP (09:21)
== END 2020-04-12 01:03 ==
PROVIDERS: Family Medicine; PCP Family Medicine; Visit Provider Obstetrics & Gynecology Gynecologic Oncology
DX: C54.1 Malignant neoplasm of endometrium (principal); C78.7 Secondary malignant neoplasm of liver and intrahepatic bile duct; R10.9 Unspecified abdominal pain; R10.13 Epigastric pain
CPT/HCPCS: 80053; 74177; 85025; J3490

== ENCOUNTER 2020-04-20 14:01 | Outpatient (REF) | payer OTHER, SELFPAY ==
[2020-04-20 21:28] LABS: Bilirubin, Total 0.8 mg/dL (0.2-1.0)
== END 2020-04-20 14:21 ==
LOC: LBN 14:01
PROVIDERS: PCP Family Medicine; Visit Provider Obstetrics & Gynecology Gynecologic Oncology
DX: C54.1 Malignant neoplasm of endometrium (principal)
CPT/HCPCS: 82247

== ENCOUNTER 2020-07-21 10:32 | Outpatient (REF) | payer OTHER, SELFPAY ==
[2020-07-22 23:50] LABS: COVID-19 RT-PCR UVMMC Result Negative (Negative)
== END 2020-07-21 10:52 ==
LOC: NCHCN 10:32
PROVIDERS: PCP Family Medicine; Visit Provider Nurse Practitioner Family
DX: Z20.828 Contact with and (suspected) exposure to other viral communicable diseases (principal)
CPT/HCPCS: U0003

== ENCOUNTER 2020-08-11 00:47 | Outpatient (CLI) | payer OTHER, SELFPAY ==
--- NOTE | 2020-08-11 | DI.CT_ITS ---
EXAM: CT CHEST W CLINICAL HISTORY: RT SIDED CHEST WALL PAIN,R07.89 TECHNIQUE: Imaging Protocol: Axial computed tomography images with coronal and sagittal reformatted images were created and reviewed CONTRAST MATERIAL: Intravenous: Omnipaque 350 Contrast volume:70 mL. COMPARISON: CT CHEST WITH CONTRAST from 07/20/[address] ABDOMEN PELVIS W from 04/12/2020 FINDINGS: Tracheobronchial tree: Patent where visualized. Mediastinum and Shayla: No dominant adenopathy or fluid collection. Pulmonary parenchyma: No consolidation or dominant measurable mass. There is scarring or atelectasis in the left lung base. No pulmonary nodules are identified. Pleura: No effusion or pneumothorax. Heart: The heart is not dilated. No coronary artery calcifications are seen. No pericardial effusion. Aorta: Thoracic aorta non-dilated. Upper abdomen: There are stable hepatic metastases. Lymph nodes: Within normal limits. Bones: Degenerative changes are seen in the spine. No destructive lesions are seen in the bones. Th ere is an S-type thoracolumbar scoliosis. Soft tissues: Unremarkable. IMPRESSION: 1. Stable hepatic metastases. 2. No evidence of a pulmonary nodule or osseous lesion. 3. Degenerative changes seen in the spine. Thoracolumbar scoliosis. RADIATION DOSE DELIVERED: 374.26mGy.cm Total DLP DATA REPOSITORY: All CT scans at this facility are submitted to the National Radiology Data Registry (NRDR) Dose Index Registry (DIR) with the [employer] (A[employer]). RADIATION OPTIMIZATION: All CT scans at this facility use at least one of these dose optimization te chniques: automated exposure control; mA and/or kV adjustment per patient size (includes targeted exa ms where dose is matched to clinical indication); or iterative reconstruction.
[2020-08-11] MEDS: Normal Saline Flush 10 ML SYR IVP (11:01)
[2020-08-11] MEDS: Normal Saline - Diluent 50 ML VIAL IV (11:01)
[2020-08-11] MEDS: Omnipaque 350 MG/ML 100 ML BTL 70 ML IJ (11:01)
== END 2020-08-11 01:07 ==
PROVIDERS: PCP Family Medicine; Visit Provider Family Medicine
DX: R07.89 Other chest pain (principal); C78.7 Secondary malignant neoplasm of liver and intrahepatic bile duct; M41.85 Other forms of scoliosis, thoracolumbar region
CPT/HCPCS: 71260; J3490

== ENCOUNTER 2021-01-13 01:20 | Outpatient (CLI) | payer OTHER, SELFPAY ==
--- NOTE | 2021-01-13 | DI.MAMMO_ITS ---
Exam(s) MAMMO SCREENING EXAM: MAMMO SCREENING CLINICAL HISTORY: SCREENING,Z12.31. TECHNIQUE: Bilateral full field digital CC and MLO mammographic images were obtained with 3D tomosyn thesis and utilizing computer aided detection (CAD). COMPARISON: Prior mammogram performed 2017 There are no other mammograms in our PACS FINDINGS: The fibroglandular tissue is again noted be dense, this decreasing the sensitivity of the mammogram f or finding in underlying lesions. There are no CAD designations. There are no new obvious spiculated masses nor malignant appearing microcalcification groups. There is no significant architectural distortion nor skin thickening-retraction. IMPRESSION: Dense bilateral fibroglandular tissue. No obvious radiographic evidence of malignancy. BI-RADS Category 1 - Negative Breast Density - Category D - Extremely dense Breast density Category C or D implies that the patient has dense breast tissue. Dense breast tissue can make it harder to find cancer on a mammogram. Dense breast tissue is also associated with an incr eased risk of breast cancer. This information about the result of the mammogram report was provided to the patient to raise their awareness. Use this report when you speak with the patient about their risks for breast cancer, which includes their family history. At that time, you may recommend additional screening tests (Ultrasoun d or MRI) as these tests may add significant information. A negative radiographic report should not delay biopsy if a dominant or clinically suspicious mass is present. Up to ten percent of cancers are not identified on mammography. A negative report may reinforce clinical impression. Adenosis and dense breasts may obscure an underlying neoplasm. False positive reports average 6 to 10%. Patient will receive a letter notifying them of these results.
== END 2021-01-13 01:40 ==
PROVIDERS: PCP Family Medicine; Visit Provider Family Medicine
DX: Z12.31 Encounter for screening mammogram for malignant neoplasm of breast (principal)
CPT/HCPCS: 77063; 77067

== ENCOUNTER 2021-03-14 16:05 | Outpatient (CLI) | payer OTHER, SELFPAY ==
[2021-03-14 11:04] LABS: Abs Immature Grans 0.04 10^3/uL (0.0-0.06); Absolute Basophil Count 0.04 10^3/uL (0.0-0.2); Absolute Lymphocyte Count 1.01 10^3/uL (1.2-3.4); Absolute Monocyte Count 0.58 10^3/uL (0.1-0.8); Absolute Neutrophil Count 8.28 10^3/uL (1.2-6.7); Basophils % 0.4; HGB 12.1 g/dL (11.2-15.7); Immature Grans % 0.4; Lymphocytes % 10.2; MCH 28.5 pg (27.0-33.0); MCHC 32.7 % (32.0-36.0); MCV 87.1 fL (80-95); MPV 8.9 fL (8.0-11.0); Monocytes % 5.8; Neutrophils % 83.2; Nucleated RBC 0 %; Platelet Count 347 10^3/uL (130-400); RBC 4.25 10^6/uL (3.93-5.22); RDW 14.7 % (11.7-14.6); RDW-SD 46.8 fL; WBC 9.95 10^3/uL (4.4-10.8)
[2021-03-14 11:13] LABS: INR 1.2 (0.9-1.1); Prothrombin Time 11.8 sec (9.3-11.0)
[2021-03-14 11:18] LABS: ALT 29 U/L (14-59); AST 32 U/L (15-37); Albumin 3.6 g/dL (3.4-5.0); Alkaline Phosphatase 113 U/L (46-116); Anion Gap 11.3 mmol/L (3-11); BUN 19 mg/dL (7-18); CO2 22.7 mmol/L (21.0-32.0); CREATININE 0.8 mg/dL (0.55-1.02); Calcium 9.5 mg/dL (8.5-10.1); Chloride 105 mmol/L (98-107); Glucose 98 mg/dL (74-106); Potassium 4.3 mmol/L (3.5-5.1); Sodium 139 mmol/L (136-145); Total Protein 7.3 g/dL (6.4-8.2)
[2021-03-14 11:22] LABS: Diff Comment Diff Reviewed
== END 2021-03-14 16:06 | disposition home or self-care (01) ==
LOC: LBO 16:05
PROVIDERS: PCP Family Medicine; Visit Provider Family Medicine
DX: C54.1 Malignant neoplasm of endometrium (principal)
CPT/HCPCS: 36415; 80053; 85025; 85610

== ENCOUNTER 2021-03-25 02:30 | Outpatient (CLI) | payer OTHER, SELFPAY ==
[2021-03-25 07:57] LABS: Abs Immature Grans 0.03 10^3/uL (0.0-0.06); Absolute Lymphocyte Count 0.76 10^3/uL (1.2-3.4); Absolute Monocyte Count 0.06 10^3/uL (0.1-0.8); Absolute Neutrophil Count 7.95 10^3/uL (1.2-6.7); HGB 12.3 g/dL (11.2-15.7); Immature Grans % 0.3; Lymphocytes % 8.6; MCH 28.3 pg (27.0-33.0); MCHC 32.4 % (32.0-36.0); MCV 87.4 fL (80-95); Monocytes % 0.7; Neutrophils % 90.4; Nucleated RBC 0 %; Platelet Count 248 10^3/uL (130-400); RBC 4.35 10^6/uL (3.93-5.22); RDW 15.1 % (11.7-14.6)
[2021-03-25 08:20] LABS: ALT 80 U/L (14-59); AST 35 U/L (15-37); Albumin 3.8 g/dL (3.4-5.0); Alkaline Phosphatase 94 U/L (46-116); Anion Gap 9.5 mmol/L (3-11); BUN 12 mg/dL (7-18); Bilirubin, Total 0.9 mg/dL (0.2-1.0); CO2 25.5 mmol/L (21.0-32.0); Chloride 102 mmol/L (98-107); Glucose 116 mg/dL (74-106); Potassium 4.3 mmol/L (3.5-5.1); Sodium 137 mmol/L (136-145); TSH 1.03 uIU/mL (0.36-3.74); Total Protein 7.3 g/dL (6.4-8.2)
[2021-03-25 08:26] LABS: CREATININE 0.7 mg/dL (0.55-1.02); Calcium 9.5 mg/dL (8.5-10.1)
== END 2021-03-25 02:31 | disposition home or self-care (01) ==
LOC: LBO 02:30
PROVIDERS: PCP Family Medicine; Visit Provider Nurse Practitioner Family
DX: C54.1 Malignant neoplasm of endometrium (principal); R53.83 Other fatigue
CPT/HCPCS: 36415; 80053; 84443; 85025

== ENCOUNTER 2021-04-13 02:40 | Outpatient (CLI) | payer OTHER, SELFPAY ==
[2021-04-13 10:44] LABS: Abs Immature Grans 0.07 10^3/uL (0.0-0.06); Absolute Basophil Count 0.04 10^3/uL (0.0-0.2); Absolute Lymphocyte Count 1.62 10^3/uL (1.2-3.4); Absolute Monocyte Count 0.65 10^3/uL (0.1-0.8); Absolute Neutrophil Count 4.26 10^3/uL (1.2-6.7); Basophils % 0.6; HCT 35.4 % (36.0-46.0); HGB 11.4 g/dL (11.2-15.7); Immature Grans % 1.1; Lymphocytes % 24.4; MCH 28.6 pg (27.0-33.0); MCHC 32.2 % (32.0-36.0); MCV 88.7 fL (80-95); MPV 8.3 fL (8.0-11.0); Monocytes % 9.8; Neutrophils % 64.1; Nucleated RBC 0 %; Platelet Count 426 10^3/uL (130-400); RBC 3.99 10^6/uL (3.93-5.22); RDW 16.9 % (11.7-14.6); RDW-SD 53.1 fL; WBC 6.64 10^3/uL (4.4-10.8)
[2021-04-13 10:58] LABS: ALT 23 U/L (14-59); AST 30 U/L (15-37); Albumin 3.6 g/dL (3.4-5.0); Alkaline Phosphatase 81 U/L (46-116); Anion Gap 8.3 mmol/L (3-11); BUN 12 mg/dL (7-18); Bilirubin, Total 0.6 mg/dL (0.2-1.0); CO2 27.7 mmol/L (21.0-32.0); CREATININE 0.7 mg/dL (0.55-1.02); Chloride 103 mmol/L (98-107); Glucose 84 mg/dL (74-106); Potassium 3.8 mmol/L (3.5-5.1); Sodium 139 mmol/L (136-145); Total Protein 6.9 g/dL (6.4-8.2)
== END 2021-04-13 02:41 | disposition home or self-care (01) ==
LOC: LBO 02:40
PROVIDERS: PCP Family Medicine; Visit Provider Nurse Practitioner Family
DX: C54.1 Malignant neoplasm of endometrium (principal); R53.83 Other fatigue
CPT/HCPCS: 36415; 80053; 85025

== ENCOUNTER 2021-05-13 05:03 | Outpatient (RCR) | payer OTHER, SELFPAY ==
[2021-04-22 10:18] LABS: Abs Immature Grans 0.31 10^3/uL (0.0-0.06); Absolute Basophil Count 0.02 10^3/uL (0.0-0.2); Absolute Eosinophil Count 0.03 10^3/uL (0.0-0.7); Absolute Lymphocyte Count 1.68 10^3/uL (1.2-3.4); Absolute Monocyte Count 0.31 10^3/uL (0.1-0.8); Basophils % 0.3; Eosinophils % 0.4; HCT 36.5 % (36.0-46.0); HGB 11.8 g/dL (11.2-15.7); Immature Grans % 4.1; Lymphocytes % 22.3; MCH 28.8 pg (27.0-33.0); MCHC 32.3 % (32.0-36.0); MPV 8.3 fL (8.0-11.0); Monocytes % 4.1; Neutrophils % 68.8; Nucleated RBC 0 %; Platelet Count 192 10^3/uL (130-400); RDW 16.3 % (11.7-14.6); RDW-SD 51.8 fL; WBC 7.55 10^3/uL (4.4-10.8)
[2021-04-22] MEDS: Normal Saline Flush 10 ML SYR IVP (10:32)
[2021-04-22 10:38] LABS: ALT 58 U/L (14-59); AST 29 U/L (15-37); Albumin 3.8 g/dL (3.4-5.0); Alkaline Phosphatase 80 U/L (46-116); Anion Gap 7.5 mmol/L (3-11); BUN 15 mg/dL (7-18); Bilirubin, Total 0.4 mg/dL (0.2-1.0); CO2 28.5 mmol/L (21.0-32.0); CREATININE 0.8 mg/dL (0.55-1.02); Calcium 9.2 mg/dL (8.5-10.1); Chloride 101 mmol/L (98-107); Glucose 92 mg/dL (74-106); Potassium 4.3 mmol/L (3.5-5.1); Sodium 137 mmol/L (136-145); Total Protein 6.9 g/dL (6.4-8.2)
[2021-04-25 09:37] LABS: CA 125 29 U/mL (<30)
[2021-05-06] MEDS: Normal Saline Flush 10 ML SYR IVP (07:43)
[2021-05-06 07:59] LABS: Abs Immature Grans 0.04 10^3/uL (0.0-0.06); Absolute Basophil Count 0.01 10^3/uL (0.0-0.2); Absolute Monocyte Count 0.08 10^3/uL (0.1-0.8); Absolute Neutrophil Count 5.18 10^3/uL (1.2-6.7); Basophils % 0.2; HCT 34.2 % (36.0-46.0); HGB 11.1 g/dL (11.2-15.7); Immature Grans % 0.7; Lymphocytes % 8.6; MCHC 32.5 % (32.0-36.0); MCV 89.3 fL (80-95); Monocytes % 1.4; Neutrophils % 89.1; Nucleated RBC 0 %; Platelet Count 475 10^3/uL (130-400); RBC 3.83 10^6/uL (3.93-5.22); RDW 17.7 % (11.7-14.6); RDW-SD 55.8 fL; WBC 5.81 10^3/uL (4.4-10.8)
[2021-05-06 08:22] LABS: ALT 40 U/L (14-59); AST 28 U/L (15-37); Albumin 3.7 g/dL (3.4-5.0); Alkaline Phosphatase 85 U/L (46-116); Anion Gap 8.9 mmol/L (3-11); BUN 15 mg/dL (7-18); Bilirubin, Total 0.7 mg/dL (0.2-1.0); CO2 24.1 mmol/L (21.0-32.0); CREATININE 0.8 mg/dL (0.55-1.02); Calcium 9.4 mg/dL (8.5-10.1); Chloride 105 mmol/L (98-107); Glucose 129 mg/dL (74-106); Potassium 4.1 mmol/L (3.5-5.1); Sodium 138 mmol/L (136-145); Total Protein 7.1 g/dL (6.4-8.2)
[2021-05-09 09:43] LABS: CA 125 26 U/mL (<30)
[2021-05-13] MEDS: Normal Saline Flush 10 ML SYR IVP (09:12)
[2021-05-13 09:14] LABS: HCT 34.7 % (36.0-46.0); HGB 11.3 g/dL (11.2-15.7); MCH 29.3 pg (27.0-33.0); MCHC 32.6 % (32.0-36.0); MCV 89.9 fL (80-95); MPV 8.6 fL (8.0-11.0); Nucleated RBC 0 %; Platelet Count 355 10^3/uL (130-400); RBC 3.86 10^6/uL (3.93-5.22); RDW 17.4 % (11.7-14.6); RDW-SD 55.7 fL; WBC 5.79 10^3/uL (4.4-10.8)
[2021-05-13 09:30] LABS: ALT 105 U/L (14-59); AST 41 U/L (15-37); Albumin 3.8 g/dL (3.4-5.0); Alkaline Phosphatase 85 U/L (46-116); Anion Gap 6.8 mmol/L (3-11); BUN 12 mg/dL (7-18); Bilirubin, Total 0.4 mg/dL (0.2-1.0); CO2 29.2 mmol/L (21.0-32.0); CREATININE 0.8 mg/dL (0.55-1.02); Calcium 9.2 mg/dL (8.5-10.1); Chloride 102 mmol/L (98-107); Glucose 92 mg/dL (74-106); Potassium 4.6 mmol/L (3.5-5.1); Sodium 138 mmol/L (136-145)
[2021-05-13 09:36] LABS: Absolute Lymphocyte Count 2.78 10^3/uL (1.2-3.4); Absolute Monocyte Count 0.29 10^3/uL (0.1-0.8); Absolute Neutrophil Count 2.55 10^3/uL (1.2-6.7); Bands % 1; Diff Comment Manual Differential; Metamyelocytes % 3; RBC Morphology Normal
== END 2021-05-19 23:59 | disposition home or self-care (01) ==
LOC: INF 05:03
PROVIDERS: PCP Family Medicine; Visit Provider Internal Medicine Hematology & Oncology
DX: C56.9 Malignant neoplasm of unspecified ovary (principal); Z45.2 Encounter for adjustment and management of vascular access device
CPT/HCPCS: 36591; 80053; 86304; 85025

== ENCOUNTER 2021-06-15 03:46 | Outpatient (RCR) | payer OTHER, SELFPAY ==
[2021-05-25 09:12] LABS: Abs Immature Grans 0.08 10^3/uL (0.0-0.06); Absolute Basophil Count 0.01 10^3/uL (0.0-0.2); Absolute Lymphocyte Count 1.59 10^3/uL (1.2-3.4); Absolute Monocyte Count 1.32 10^3/uL (0.1-0.8); Absolute Neutrophil Count 7.18 10^3/uL (1.2-6.7); Basophils % 0.1; HCT 31.2 % (36.0-46.0); Immature Grans % 0.8; Lymphocytes % 15.6; MCH 29.2 pg (27.0-33.0); MCHC 32.1 % (32.0-36.0); MCV 91.2 fL (80-95); MPV 9.8 fL (8.0-11.0); Neutrophils % 70.5; Nucleated RBC 0 %; Platelet Count 301 10^3/uL (130-400); RBC 3.42 10^6/uL (3.93-5.22); RDW 18.4 % (11.7-14.6); WBC 10.18 10^3/uL (4.4-10.8)
[2021-05-25 09:24] LABS: ALT 48 U/L (14-59); AST 26 U/L (15-37); Albumin 3.3 g/dL (3.4-5.0); Alkaline Phosphatase 99 U/L (46-116); BUN 9 mg/dL (7-18); Bilirubin, Total 0.6 mg/dL (0.2-1.0); CREATININE 0.8 mg/dL (0.55-1.02); Calcium 9.6 mg/dL (8.5-10.1); Chloride 101 mmol/L (98-107); Glucose 94 mg/dL (74-106); Potassium 4.1 mmol/L (3.5-5.1); Sodium 136 mmol/L (136-145); Total Protein 7.4 g/dL (6.4-8.2)
[2021-05-25 11:28] LABS: FREE T4 0.95 ng/dL (0.76-1.46); TSH 4.31 uIU/mL (0.36-3.74)
[2021-06-09] MEDS: Normal Saline Flush 10 ML SYR IVP (07:58)
[2021-06-09] MEDS: Heparin 500 UNITS/5 ML SYRINGE IV (07:58)
[2021-06-15] MEDS: Normal Saline Flush 10 ML SYR IVP (09:25)
[2021-06-15] MEDS: Heparin 500 UNITS/5 ML SYRINGE IV (09:25)
[2021-06-15 09:41] LABS: Abs Immature Grans 0.01 10^3/uL (0.0-0.06); Absolute Basophil Count 0.03 10^3/uL (0.0-0.2); Absolute Eosinophil Count 0.01 10^3/uL (0.0-0.7); Absolute Lymphocyte Count 0.91 10^3/uL (1.2-3.4); Absolute Monocyte Count 0.51 10^3/uL (0.1-0.8); Absolute Neutrophil Count 5.07 10^3/uL (1.2-6.7); Basophils % 0.5; Eosinophils % 0.2; HCT 37.3 % (36.0-46.0); HGB 11.9 g/dL (11.2-15.7); Immature Grans % 0.2; Lymphocytes % 13.9; MCH 28.7 pg (27.0-33.0); MCHC 31.9 % (32.0-36.0); MCV 89.9 fL (80-95); MPV 9.3 fL (8.0-11.0); Monocytes % 7.8; Neutrophils % 77.4; Nucleated RBC 0 %; Platelet Count 320 10^3/uL (130-400); RBC 4.15 10^6/uL (3.93-5.22); RDW 17.3 % (11.7-14.6); WBC 6.54 10^3/uL (4.4-10.8)
[2021-06-15 10:11] LABS: ALT 22 U/L (14-59); AST 25 U/L (15-37); Albumin 3.5 g/dL (3.4-5.0); Alkaline Phosphatase 92 U/L (46-116); Anion Gap 7.9 mmol/L (3-11); BUN 9 mg/dL (7-18); Bilirubin, Total 0.7 mg/dL (0.2-1.0); CO2 28.1 mmol/L (21.0-32.0); CREATININE 0.7 mg/dL (0.55-1.02); Calcium 9.2 mg/dL (8.5-10.1); Chloride 102 mmol/L (98-107); FREE T4 0.82 ng/dL (0.76-1.46); Glucose 101 mg/dL (74-106); Potassium 4.4 mmol/L (3.5-5.1); Sodium 138 mmol/L (136-145); TSH 2.98 uIU/mL (0.36-3.74); Total Protein 7.2 g/dL (6.4-8.2)
== END 2021-06-19 23:59 | disposition home or self-care (01) ==
LOC: INF 03:46
PROVIDERS: PCP Family Medicine; Visit Provider Internal Medicine Hematology & Oncology
DX: C56.9 Malignant neoplasm of unspecified ovary (principal); Z45.2 Encounter for adjustment and management of vascular access device; Z79.899 Other long term (current) drug therapy
CPT/HCPCS: 36591; 80053; 96523; 84439; 84443; 85025

== ENCOUNTER 2021-07-06 01:43 | Outpatient (RCR) | payer OTHER, SELFPAY ==
[2021-07-06] MEDS: Normal Saline Flush 10 ML SYR IVP (09:15)
[2021-07-06] MEDS: Heparin 500 UNITS/5 ML SYRINGE IV (09:15)
[2021-07-06 09:49] LABS: Abs Immature Grans 0.02 10^3/uL (0.0-0.06); Absolute Basophil Count 0.02 10^3/uL (0.0-0.2); Absolute Lymphocyte Count 0.73 10^3/uL (1.2-3.4); Absolute Monocyte Count 0.44 10^3/uL (0.1-0.8); Absolute Neutrophil Count 4.81 10^3/uL (1.2-6.7); Basophils % 0.3; HCT 37.9 % (36.0-46.0); HGB 11.9 g/dL (11.2-15.7); Immature Grans % 0.3; Lymphocytes % 12.1; MCH 28.3 pg (27.0-33.0); MCHC 31.4 % (32.0-36.0); MPV 9.6 fL (8.0-11.0); Monocytes % 7.3; Nucleated RBC 0 %; Platelet Count 284 10^3/uL (130-400); RBC 4.21 10^6/uL (3.93-5.22); RDW 15.9 % (11.7-14.6); RDW-SD 52.5 fL; WBC 6.02 10^3/uL (4.4-10.8)
[2021-07-06 10:07] LABS: ALT 30 U/L (14-59); AST 31 U/L (15-37); Albumin 3.3 g/dL (3.4-5.0); Alkaline Phosphatase 74 U/L (46-116); Anion Gap 6.9 mmol/L (3-11); BUN 8 mg/dL (7-18); Bilirubin, Total 0.8 mg/dL (0.2-1.0); CO2 29.1 mmol/L (21.0-32.0); CREATININE 0.6 mg/dL (0.55-1.02); Calcium 8.8 mg/dL (8.5-10.1); Chloride 106 mmol/L (98-107); FREE T4 0.69 ng/dL (0.76-1.46); Glucose 108 mg/dL (74-106); Sodium 142 mmol/L (136-145); TSH 2.67 uIU/mL (0.36-3.74); Total Protein 6.5 g/dL (6.4-8.2)
== END 2021-07-19 23:59 | disposition home or self-care (01) ==
LOC: INF 01:43
PROVIDERS: PCP Family Medicine; Visit Provider Internal Medicine Hematology & Oncology
DX: C56.9 Malignant neoplasm of unspecified ovary (principal); Z79.899 Other long term (current) drug therapy; Z45.2 Encounter for adjustment and management of vascular access device
CPT/HCPCS: 36591; 80053; 84439; 84443; 85025

== ENCOUNTER 2021-08-16 02:22 | Outpatient (RCR) | payer OTHER, SELFPAY ==
[2021-07-27] MEDS: Normal Saline Flush 10 ML SYR IVP (09:21)
[2021-07-27] MEDS: Heparin 500 UNITS/5 ML SYRINGE IV (09:22)
[2021-07-27 09:53] LABS: Abs Immature Grans 0.02 10^3/uL (0.0-0.06); Absolute Basophil Count 0.01 10^3/uL (0.0-0.2); Absolute Eosinophil Count 0.01 10^3/uL (0.0-0.7); Absolute Lymphocyte Count 0.75 10^3/uL (1.2-3.4); Absolute Monocyte Count 0.44 10^3/uL (0.1-0.8); Absolute Neutrophil Count 4.15 10^3/uL (1.2-6.7); Basophils % 0.2; Eosinophils % 0.2; HCT 40.1 % (36.0-46.0); HGB 12.6 g/dL (11.2-15.7); Immature Grans % 0.4; Lymphocytes % 13.9; MCH 27.6 pg (27.0-33.0); MCHC 31.4 % (32.0-36.0); MCV 87.9 fL (80-95); MPV 9.5 fL (8.0-11.0); Monocytes % 8.2; Neutrophils % 77.1; Nucleated RBC 0 %; Platelet Count 282 10^3/uL (130-400); RBC 4.56 10^6/uL (3.93-5.22); RDW 14.8 % (11.7-14.6); RDW-SD 48.4 fL; WBC 5.38 10^3/uL (4.4-10.8)
[2021-07-27 10:15] LABS: ALT 22 U/L (14-59); AST 28 U/L (15-37); Albumin 3.4 g/dL (3.4-5.0); Alkaline Phosphatase 76 U/L (46-116); Anion Gap 6.6 mmol/L (3-11); BUN 17 mg/dL (7-18); Bilirubin, Total 0.9 mg/dL (0.2-1.0); CO2 27.4 mmol/L (21.0-32.0); CREATININE 0.6 mg/dL (0.55-1.02); Calcium 8.9 mg/dL (8.5-10.1); Chloride 104 mmol/L (98-107); FREE T4 0.64 ng/dL (0.76-1.46); Glucose 92 mg/dL (74-106); Potassium 4.1 mmol/L (3.5-5.1); Sodium 138 mmol/L (136-145); TSH 4.06 uIU/mL (0.36-3.74); Total Protein 6.7 g/dL (6.4-8.2)
[2021-08-16] MEDS: Normal Saline Flush 10 ML SYR IVP (10:25)
[2021-08-16] MEDS: Heparin 500 UNITS/5 ML SYRINGE IV (10:25)
[2021-08-16 10:32] LABS: Absolute Basophil Count 0.02 10^3/uL (0.0-0.2); Absolute Lymphocyte Count 0.84 10^3/uL (1.2-3.4); Absolute Monocyte Count 0.38 10^3/uL (0.1-0.8); Absolute Neutrophil Count 2.64 10^3/uL (1.2-6.7); Basophils % 0.5; HCT 41.5 % (36.0-46.0); Lymphocytes % 21.6; MCH 27.7 pg (27.0-33.0); MCHC 31.3 % (32.0-36.0); MCV 88.3 fL (80-95); Monocytes % 9.8; Neutrophils % 68.1; Nucleated RBC 0 %; Platelet Count 255 10^3/uL (130-400); RDW 14.4 % (11.7-14.6); RDW-SD 46.5 fL; WBC 3.88 10^3/uL (4.4-10.8)
[2021-08-16 10:54] LABS: ALT 26 U/L (14-59); AST 33 U/L (15-37); Alkaline Phosphatase 86 U/L (46-116); Anion Gap 6.4 mmol/L (3-11); BUN 13 mg/dL (7-18); Bilirubin, Total 0.8 mg/dL (0.2-1.0); CO2 29.6 mmol/L (21.0-32.0); CREATININE 0.7 mg/dL (0.55-1.02); Calcium 9.4 mg/dL (8.5-10.1); Chloride 99 mmol/L (98-107); FREE T4 0.84 ng/dL (0.76-1.46); Glucose 86 mg/dL (74-106); Potassium 4.4 mmol/L (3.5-5.1); Sodium 135 mmol/L (136-145); TSH 1.33 uIU/mL (0.36-3.74); Total Protein 7.5 g/dL (6.4-8.2)
== END 2021-08-19 23:59 | disposition home or self-care (01) ==
LOC: INF 02:22
PROVIDERS: PCP Family Medicine; Visit Provider Internal Medicine Hematology & Oncology
DX: Z79.899 Other long term (current) drug therapy (principal); Z45.2 Encounter for adjustment and management of vascular access device; C56.9 Malignant neoplasm of unspecified ovary
CPT/HCPCS: 36591; 80053; 84439; 84443; 85025

== ENCOUNTER 2021-09-02 01:54 | Outpatient (CLI) | payer OTHER, SELFPAY ==
--- NOTE | 2021-09-02 09:42 | DI.RAD_ITS ---
Exam(s) XR LUMBAR SPINE AP, LAT EXAM: XR LUMBAR SPINE AP, LAT CLINICAL HISTORY: BILAT LOW BACK PAIN. TECHNIQUE: 2D digital imaging was performed. COMPARISON: CR LUMBAR SPINE COMPLETE from 07/27/2010 FINDINGS: Rotoscoliosis again noted, convex left There is no evidence of acute fracture listhesis. Advanced disc space narrowing at L5-S1 again noted . Facet arthropathy at this level again noted. Other levels appear unchanged. Sacroiliac joints un remarkable. Evidence of previous surgery pelvis is again. IMPRESSION: Minimal if any significant change when compared to x-rays of July 2010 DATA REPOSITORY: RADIATION DOSE DELIVERED:
== END 2021-09-02 02:14 ==
PROVIDERS: PCP Family Medicine; Visit Provider Family Medicine
DX: M54.50 Low back pain, unspecified (principal)
CPT/HCPCS: 72100

== ENCOUNTER 2021-09-07 01:49 | Outpatient (RCR) | payer OTHER, SELFPAY ==
[2021-09-07] MEDS: Normal Saline Flush 10 ML SYR IVP (09:11)
[2021-09-07] MEDS: Heparin 500 UNITS/5 ML SYRINGE IV (09:12)
[2021-09-07 09:31] LABS: Abs Immature Grans 0.01 10^3/uL (0.0-0.06); Absolute Basophil Count 0.02 10^3/uL (0.0-0.2); Absolute Eosinophil Count 0.01 10^3/uL (0.0-0.7); Absolute Lymphocyte Count 1.14 10^3/uL (1.2-3.4); Absolute Monocyte Count 0.32 10^3/uL (0.1-0.8); Absolute Neutrophil Count 1.99 10^3/uL (1.2-6.7); Basophils % 0.6; Eosinophils % 0.3; HCT 41.2 % (36.0-46.0); HGB 13.2 g/dL (11.2-15.7); Immature Grans % 0.3; Lymphocytes % 32.7; MCH 27.7 pg (27.0-33.0); MCV 86.4 fL (80-95); MPV 9.3 fL (8.0-11.0); Monocytes % 9.2; Neutrophils % 56.9; Nucleated RBC 0 %; Platelet Count 237 10^3/uL (130-400); RBC 4.77 10^6/uL (3.93-5.22); RDW 15.1 % (11.7-14.6); RDW-SD 47.9 fL; WBC 3.49 10^3/uL (4.4-10.8)
[2021-09-07 09:54] LABS: ALT 36 U/L (14-59); AST 33 U/L (15-37); Albumin 3.8 g/dL (3.4-5.0); Alkaline Phosphatase 81 U/L (46-116); Anion Gap 6.8 mmol/L (3-11); BUN 13 mg/dL (7-18); Bilirubin, Total 0.8 mg/dL (0.2-1.0); CO2 28.2 mmol/L (21.0-32.0); CREATININE 0.5 mg/dL (0.55-1.02); Calcium 9.3 mg/dL (8.5-10.1); Chloride 99 mmol/L (98-107); FREE T4 0.84 ng/dL (0.76-1.46); Glucose 92 mg/dL (74-106); Potassium 4.6 mmol/L (3.5-5.1); Sodium 134 mmol/L (136-145); TSH 4.76 uIU/mL (0.36-3.74); Total Protein 7.1 g/dL (6.4-8.2)
== END 2021-09-19 23:59 | disposition home or self-care (01) ==
LOC: INF 01:49
PROVIDERS: PCP Family Medicine; Visit Provider Internal Medicine Hematology & Oncology
DX: C56.9 Malignant neoplasm of unspecified ovary (principal); Z79.899 Other long term (current) drug therapy; Z45.2 Encounter for adjustment and management of vascular access device
CPT/HCPCS: 36591; 80053; 84439; 84443; 85025

== ENCOUNTER 2021-09-30 12:11 | Outpatient (RCR) | payer OTHER, SELFPAY ==
[2021-09-30] MEDS: Normal Saline Flush 10 ML SYR IVP (12:23)
[2021-09-30] MEDS: Heparin 500 UNITS/5 ML SYRINGE (12:23)
[2021-10-01 10:44] LABS: SARS-CoV-2 Spike Ab, Interp Positive; SARS-CoV-2 Spike Ab, Quant >250 U/mL
== END 2021-10-17 23:59 | disposition home or self-care (01) ==
LOC: INF 12:11
PROVIDERS: PCP Family Medicine; Visit Provider Internal Medicine Hematology & Oncology
DX: C54.1 Malignant neoplasm of endometrium (principal); Z45.2 Encounter for adjustment and management of vascular access device
CPT/HCPCS: 36591; 86769

== ENCOUNTER 2021-10-19 01:16 | Outpatient (RCR) | payer OTHER, SELFPAY ==
[2021-10-19] MEDS: Normal Saline Flush 10 ML SYR IVP (09:08)
[2021-10-19] MEDS: Heparin 500 UNITS/5 ML SYRINGE IV (09:08)
[2021-10-19 09:16] LABS: Abs Immature Grans 0.01 10^3/uL (0.0-0.06); Absolute Basophil Count 0.02 10^3/uL (0.0-0.2); Absolute Eosinophil Count 0.01 10^3/uL (0.0-0.7); Absolute Lymphocyte Count 1.29 10^3/uL (1.2-3.4); Absolute Monocyte Count 0.58 10^3/uL (0.1-0.8); Absolute Neutrophil Count 4.64 10^3/uL (1.2-6.7); Basophils % 0.3; Eosinophils % 0.2; HCT 43.9 % (36.0-46.0); Immature Grans % 0.2; Lymphocytes % 19.7; MCH 27.8 pg (27.0-33.0); MCHC 31.9 % (32.0-36.0); MCV 87.1 fL (80-95); Monocytes % 8.9; Neutrophils % 70.7; Nucleated RBC 0 %; Platelet Count 251 10^3/uL (130-400); RBC 5.04 10^6/uL (3.93-5.22); RDW 16.2 % (11.7-14.6); RDW-SD 50.9 fL; WBC 6.55 10^3/uL (4.4-10.8)
[2021-10-19 09:38] LABS: ALT 34 U/L (14-59); AST 36 U/L (15-37); Albumin 4.1 g/dL (3.4-5.0); Alkaline Phosphatase 73 U/L (46-116); Anion Gap 8.5 mmol/L (3-11); BUN 12 mg/dL (7-18); Bilirubin, Total 1.2 mg/dL (0.2-1.0); CO2 28.5 mmol/L (21.0-32.0); CREATININE 0.6 mg/dL (0.55-1.02); Calcium 9.6 mg/dL (8.5-10.1); Chloride 100 mmol/L (98-107); FREE T4 0.81 ng/dL (0.76-1.46); Glucose 99 mg/dL (74-106); Potassium 4.4 mmol/L (3.5-5.1); Sodium 137 mmol/L (136-145); TSH 3.06 uIU/mL (0.36-3.74); Total Protein 7.5 g/dL (6.4-8.2)
== END 2021-11-17 23:59 | disposition home or self-care (01) ==
LOC: INF 01:16
PROVIDERS: PCP Family Medicine; Visit Provider Internal Medicine Hematology & Oncology
DX: Z79.899 Other long term (current) drug therapy (principal); C56.9 Malignant neoplasm of unspecified ovary; Z45.2 Encounter for adjustment and management of vascular access device
CPT/HCPCS: 36591; 80053; 84439; 84443; 85025

== ENCOUNTER 2022-01-13 10:00 | Outpatient (RCR) | payer OTHER, SELFPAY ==
[2021-12-21] MEDS: Heparin 500 UNITS/5 ML SYRINGE IV (11:09)
[2021-12-21] MEDS: Normal Saline Flush 10 ML SYR IVP (11:09)
[2021-12-21 11:23] LABS: Abs Immature Grans 0.08 10^3/uL (0.0-0.06); Absolute Basophil Count 0.03 10^3/uL (0.0-0.2); Absolute Eosinophil Count 0.01 10^3/uL (0.0-0.7); Absolute Lymphocyte Count 1.64 10^3/uL (1.2-3.4); Absolute Monocyte Count 0.77 10^3/uL (0.1-0.8); Absolute Neutrophil Count 6.37 10^3/uL (1.2-6.7); Basophils % 0.3; Eosinophils % 0.1; HCT 39.4 % (36.0-46.0); HGB 12.8 g/dL (11.2-15.7); Immature Grans % 0.9; Lymphocytes % 18.4; MCH 29.4 pg (27.0-33.0); MCHC 32.5 % (32.0-36.0); MCV 91 fL (80-95); Monocytes % 8.7; Neutrophils % 71.6; Platelet Count 281 10^3/uL (130-400); RBC 4.35 10^6/uL (3.93-5.22); RDW 15.4 % (11.7-14.6); RDW-SD 51.3 fL
[2021-12-21 11:52] LABS: ALT 24 U/L (14-59); AST 21 U/L (15-37); Albumin 3.8 g/dL (3.4-5.0); Alkaline Phosphatase 72 U/L (46-116); Anion Gap 8.6 mmol/L (3-11); BUN 12 mg/dL (7-18); CO2 26.4 mmol/L (21.0-32.0); CREATININE 0.7 mg/dL (0.55-1.02); Chloride 105 mmol/L (98-107); FREE T4 0.84 ng/dL (0.76-1.46); Glucose 88 mg/dL (74-106); Potassium 3.6 mmol/L (3.5-5.1); Sodium 140 mmol/L (136-145); TSH 1.08 uIU/mL (0.36-3.74)
[2022-01-11] MEDS: Normal Saline Flush 10 ML SYR IVP (07:56)
[2022-01-11] MEDS: Heparin 500 UNITS/5 ML SYRINGE IV (07:57)
[2022-01-11 08:04] LABS: Abs Immature Grans 0.01 10^3/uL (0.0-0.06); Absolute Basophil Count 0.03 10^3/uL (0.0-0.2); Absolute Eosinophil Count 0.02 10^3/uL (0.0-0.7); Absolute Monocyte Count 0.48 10^3/uL (0.1-0.8); Absolute Neutrophil Count 2.88 10^3/uL (1.2-6.7); Basophils % 0.6; Eosinophils % 0.4; HCT 41.4 % (36.0-46.0); HGB 13.3 g/dL (11.2-15.7); Immature Grans % 0.2; MCH 29.1 pg (27.0-33.0); MCHC 32.1 % (32.0-36.0); MCV 91 fL (80-95); MPV 8.9 fL (8.0-11.0); Monocytes % 10.4; Neutrophils % 62.4; Platelet Count 302 10^3/uL (130-400); RBC 4.57 10^6/uL (3.93-5.22); RDW 14.3 % (11.7-14.6); RDW-SD 47.5 fL; WBC 4.62 10^3/uL (4.4-10.8)
[2022-01-11 08:29] LABS: ALT 21 U/L (14-59); AST 25 U/L (15-37); Albumin 3.8 g/dL (3.4-5.0); Alkaline Phosphatase 70 U/L (46-116); Anion Gap 6.2 mmol/L (3-11); BUN 7 mg/dL (7-18); Bilirubin, Total 1.6 mg/dL (0.2-1.0); CO2 25.8 mmol/L (21.0-32.0); CREATININE 0.7 mg/dL (0.55-1.02); Calcium 9.4 mg/dL (8.5-10.1); Chloride 105 mmol/L (98-107); FREE T4 0.99 ng/dL (0.76-1.46); Glucose 95 mg/dL (74-106); Potassium 4.1 mmol/L (3.5-5.1); Sodium 137 mmol/L (136-145); TSH 1.46 uIU/mL (0.36-3.74); Total Protein 7.2 g/dL (6.4-8.2)
[2022-01-13] MEDS: Normal Saline Flush 10 ML SYR IVP (10:09)
[2022-01-13 10:31] LABS: ALT 23 U/L (14-59); AST 24 U/L (15-37); Albumin 3.9 g/dL (3.4-5.0); Alkaline Phosphatase 70 U/L (46-116); Anion Gap 7.9 mmol/L (3-11); BUN 10 mg/dL (7-18); Bilirubin, Direct 0.2 mg/dL (0.0-0.2); Bilirubin, Total 1.2 mg/dL (0.2-1.0); CO2 25.1 mmol/L (21.0-32.0); CREATININE 0.7 mg/dL (0.55-1.02); Calcium 9.6 mg/dL (8.5-10.1); Chloride 107 mmol/L (98-107); Glucose 100 mg/dL (74-106); Potassium 4.4 mmol/L (3.5-5.1); Sodium 140 mmol/L (136-145); Total Protein 7.2 g/dL (6.4-8.2)
== END 2022-01-17 23:59 | disposition home or self-care (01) ==
LOC: INF 10:00
PROVIDERS: PCP Family Medicine; Visit Provider Internal Medicine Hematology & Oncology
DX: Z45.2 Encounter for adjustment and management of vascular access device (principal); Z79.899 Other long term (current) drug therapy; C56.9 Malignant neoplasm of unspecified ovary
CPT/HCPCS: 36415; 36591; 80053; 96523; 82248; 84439; 84443; 85025

== ENCOUNTER 2022-01-26 07:07 | Outpatient (RCR) | payer OTHER, SELFPAY ==
[2022-01-26] MEDS: Normal Saline Flush 10 ML SYR IVP (07:36)
[2022-01-26] MEDS: Heparin 500 UNITS/5 ML SYRINGE (07:36)
[2022-01-26 07:42] LABS: Abs Immature Grans 0.04 10^3/uL (0.0-0.06); Absolute Basophil Count 0.04 10^3/uL (0.0-0.2); Absolute Eosinophil Count 0.03 10^3/uL (0.0-0.7); Absolute Lymphocyte Count 1.58 10^3/uL (1.2-3.4); Basophils % 0.6; Eosinophils % 0.4; HCT 39.6 % (36.0-46.0); HGB 13.1 g/dL (11.2-15.7); Immature Grans % 0.6; Lymphocytes % 23.3; MCH 29.7 pg (27.0-33.0); MCHC 33.1 % (32.0-36.0); MCV 90 fL (80-95); MPV 8.7 fL (8.0-11.0); Monocytes % 10.3; Neutrophils % 64.8; Platelet Count 280 10^3/uL (130-400); RBC 4.41 10^6/uL (3.93-5.22); RDW 13.5 % (11.7-14.6); RDW-SD 44.5 fL; WBC 6.79 10^3/uL (4.4-10.8)
[2022-01-26 08:16] LABS: ALT 21 U/L (14-59); AST 22 U/L (15-37); Albumin 3.8 g/dL (3.4-5.0); Alkaline Phosphatase 64 U/L (46-116); Anion Gap 8.5 mmol/L (3-11); BUN 14 mg/dL (7-18); Bilirubin, Total 0.9 mg/dL (0.2-1.0); CO2 26.5 mmol/L (21.0-32.0); CREATININE 0.7 mg/dL (0.55-1.02); Calcium 9.5 mg/dL (8.5-10.1); Chloride 102 mmol/L (98-107); Glucose 96 mg/dL (74-106); Potassium 4.1 mmol/L (3.5-5.1); Sodium 137 mmol/L (136-145); TSH 0.86 uIU/mL (0.36-3.74)
== END 2022-02-16 23:59 | disposition home or self-care (01) ==
LOC: INF 07:07
PROVIDERS: PCP Family Medicine; Visit Provider Internal Medicine Hematology & Oncology
DX: Z45.2 Encounter for adjustment and management of vascular access device (principal); C56.9 Malignant neoplasm of unspecified ovary; Z79.899 Other long term (current) drug therapy
CPT/HCPCS: 36591; 80053; 84439; 84443; 85025

== ENCOUNTER 2022-03-15 12:00 | Outpatient (RCR) | payer OTHER, SELFPAY ==
[2022-03-15 12:25] LABS: Abs Immature Grans 0.03 10^3/uL (0.0-0.06); Absolute Basophil Count 0.06 10^3/uL (0.0-0.2); Absolute Eosinophil Count 0.01 10^3/uL (0.0-0.7); Absolute Neutrophil Count 3.86 10^3/uL (1.2-6.7); Basophils % 1.1; Eosinophils % 0.2; HCT 39.2 % (36.0-46.0); HGB 13.1 g/dL (11.2-15.7); Immature Grans % 0.5; Lymphocytes % 24.7; MCH 29.4 pg (27.0-33.0); MCHC 33.4 % (32.0-36.0); MCV 88 fL (80-95); MPV 8.9 fL (8.0-11.0); Monocytes % 5.3; Neutrophils % 68.2; Platelet Count 278 10^3/uL (130-400); RBC 4.45 10^6/uL (3.93-5.22); RDW-SD 44.8 fL; WBC 5.66 10^3/uL (4.4-10.8)
[2022-03-15 12:41] LABS: ALT 25 U/L (14-59); AST 18 U/L (15-37); Albumin 3.7 g/dL (3.4-5.0); Alkaline Phosphatase 59 U/L (46-116); Anion Gap 8.7 mmol/L (3-11); BUN 13 mg/dL (7-18); Bilirubin, Total 0.5 mg/dL (0.2-1.0); CO2 25.3 mmol/L (21.0-32.0); Chloride 103 mmol/L (98-107); Estimated GFR 56.75 (mL/min/1.73m2); Glucose 100 mg/dL (74-106); Sodium 137 mmol/L (136-145); Total Protein 6.9 g/dL (6.4-8.2)
[2022-03-15] MEDS: Normal Saline Flush 10 ML SYR IVP (13:30)
== END 2022-03-19 23:59 | disposition home or self-care (01) ==
LOC: INF 12:00
PROVIDERS: PCP Family Medicine; Visit Provider Internal Medicine Hematology & Oncology
DX: C56.9 Malignant neoplasm of unspecified ovary (principal); Z45.2 Encounter for adjustment and management of vascular access device
CPT/HCPCS: 36591; 80053; 85025

== ENCOUNTER 2022-04-18 07:52 | Outpatient (REF) | payer OTHER, SELFPAY ==
[2022-04-20 23:43] LABS: Campylobacter PCR Negative (Negative); Salmonella PCR Negative (Negative); Shiga Toxin PCR Negative (Negative); Shigella/Enteroinvasive Ecoli Negative (Negative)
== END 2022-04-18 07:53 | disposition home or self-care (01) ==
LOC: LBN 07:52
PROVIDERS: PCP Family Medicine; Visit Provider Family Medicine
DX: R19.7 Diarrhea, unspecified (principal)
CPT/HCPCS: 87493; 87505; 83630

== ENCOUNTER 2022-04-20 10:41 | Outpatient (RCR) | payer OTHER, SELFPAY ==
[2022-04-20] MEDS: Heparin 500 UNITS/5 ML SYRINGE (13:40)
[2022-04-20] MEDS: Normal Saline Flush 10 ML SYR IVP (13:41)
[2022-04-20 14:03] LABS: Abs Immature Grans 0.04 10^3/uL (0.0-0.06); Absolute Basophil Count 0.04 10^3/uL (0.0-0.2); Absolute Eosinophil Count 0.04 10^3/uL (0.0-0.7); Absolute Lymphocyte Count 1.98 10^3/uL (1.2-3.4); Absolute Monocyte Count 0.82 10^3/uL (0.1-0.8); Absolute Neutrophil Count 4.71 10^3/uL (1.2-6.7); Basophils % 0.5; Eosinophils % 0.5; HCT 38.2 % (36.0-46.0); HGB 12.6 g/dL (11.2-15.7); Immature Grans % 0.5; MCH 28.7 pg (27.0-33.0); MCV 87 fL (80-95); MPV 9.5 fL (8.0-11.0); Monocytes % 10.7; Neutrophils % 61.8; Platelet Count 340 10^3/uL (130-400); RBC 4.39 10^6/uL (3.93-5.22); RDW 15.9 % (11.7-14.6); RDW-SD 50.8 fL; WBC 7.63 10^3/uL (4.4-10.8)
[2022-04-20 14:18] LABS: ALT 28 U/L (14-59); AST 25 U/L (15-37); Albumin 3.6 g/dL (3.4-5.0); Alkaline Phosphatase 63 U/L (46-116); Anion Gap 5.8 mmol/L (3-11); BUN 9 mg/dL (7-18); Bilirubin, Total 0.9 mg/dL (0.2-1.0); CO2 26.2 mmol/L (21.0-32.0); CREATININE 0.8 mg/dL (0.55-1.02); Calcium 9.1 mg/dL (8.5-10.1); Chloride 107 mmol/L (98-107); Estimated GFR 84.82 (mL/min/1.73m2); Glucose 116 mg/dL (74-106); Potassium 3.5 mmol/L (3.5-5.1); Sodium 139 mmol/L (136-145); TSH (W/Ref FT4) 1.21 uIU/mL (0.36-3.74); Total Protein 7.1 g/dL (6.4-8.2)
== END 2022-05-16 23:59 | disposition home or self-care (01) ==
LOC: INF 10:41
PROVIDERS: PCP Family Medicine; Visit Provider Family Medicine
DX: Z45.2 Encounter for adjustment and management of vascular access device (principal); C54.1 Malignant neoplasm of endometrium
CPT/HCPCS: 36591; 80053; 84443; 85025